=== PATIENT | male | born 1945 | race Caucasian/White ===

== ENCOUNTER 2018-06-16 22:42 | Emergency (ER) | payer OTHER, MEDICARE ==
[2018-06-17] MEDS: LIDOCAINE 1% (MPF) 30 ML INJ INJ (01:21)
[2018-06-17] MEDS: DIPHTH/TET/ACEL PERTUSS (ADULT) 0.5 ML VIAL IM* (01:21)
[2018-06-17] MEDS: GELATIN POWDER 1 GM KIT TOP (01:22)
== END 2018-06-17 03:22 | disposition home or self-care (01) ==
LOC: FTE 22:42
DX: S67.193A Crushing injury of left middle finger, initial encounter (principal); S61.203A Unspecified open wound of left middle finger without damage to nail, initial encounter; W20.8XXA Other cause of strike by thrown, projected or falling object, initial encounter; Y92.9 Unspecified place or not applicable; Z23 Encounter for immunization
CPT/HCPCS: 12001; 73140; 90471; 90715; 99283-25